=== PATIENT | female | born 1980 | race African-American/Black ===

== ENCOUNTER 2020-03-17 07:28 | Emergency (ER) | payer OTHER ==
[~2020-03-17] VITALS: Ht 152.4 cm; Wt 52.0 kg
[2020-03-17 07:30] VITALS: BP 115/71
[2020-03-17] MEDS ORDERED: FLUORESCEIN SODIUM 1MG/STRIP BOTHEYE ONE (08:30)
== END 2020-03-17 09:22 | disposition home or self-care (01) ==
LOC: ER 08:23
DX: T15.02XA Foreign body in cornea, left eye, initial encounter (principal); X58.XXXA Exposure to other specified factors, initial encounter
CPT/HCPCS: 99283